=== PATIENT | male | born 1960 | race Caucasian/White ===

== ENCOUNTER → 2017-02-19 | Outpatient (CLI) | payer OTHER | LOC: CIMAGING 14:25 | PROVIDERS: ATTEND Physical Medicine & Rehabilitation Pain Medicine | DX: M43.06 Spondylolysis, lumbar region (principal); M51.37 Other intervertebral disc degeneration, lumbosacral region | CPT/HCPCS: 72100-PO ==

== ENCOUNTER → 2017-03-12 | Outpatient (CLI) | payer OTHER | LOC: CIMAGING 14:05 | PROVIDERS: ATTEND Family Medicine | DX: Z01.811 Encounter for preprocedural respiratory examination (principal); J42 Unspecified chronic bronchitis | CPT/HCPCS: 71046-PO ==

== ENCOUNTER → 2017-06-11 | Outpatient (CLI) | payer OTHER | LOC: CIMAGING 13:51 | PROVIDERS: ATTEND Physician Assistant Surgical | DX: Z09 Encounter for follow-up examination after completed treatment for conditions other than malignant neoplasm (principal); Z98.1 Arthrodesis status | CPT/HCPCS: 72100-PO ==

== ENCOUNTER → 2017-09-06 | Outpatient (CLI) | payer OTHER | LOC: CIMAGING 10:28 | PROVIDERS: ATTEND Physician Assistant Surgical | DX: Z98.1 Arthrodesis status (principal) | CPT/HCPCS: 72100-PO ==

== ENCOUNTER → 2018-01-14 | Outpatient (CLI) | payer OTHER | LOC: CIMAGING 14:48 | PROVIDERS: ATTEND Physician Assistant Surgical | DX: Z09 Encounter for follow-up examination after completed treatment for conditions other than malignant neoplasm (principal); M43.17 Spondylolisthesis, lumbosacral region; Z98.1 Arthrodesis status | CPT/HCPCS: 72100-PO ==